=== PATIENT | male | born 1975 | race Caucasian/White ===

== ENCOUNTER 2018-12-15 18:23 | Emergency (ER) | payer MEDICAID ==
[2018-12-15] MEDS: METHYLPREDNISOLONE 125 MG INJ IM (20:26)
[2018-12-15] MEDS: ALBUTEROL 0.083% (NEB) 2.5 MG/3 ML AMP NEB (20:28)
[2018-12-15] MEDS: IPRATROPIUM (NEB) 0.5 MG/2.5 ML AMP NEB (20:28)
[2018-12-15] MEDS: ACETAMINOPHEN 500 MG TAB PO (20:34)
== END 2018-12-15 21:45 | disposition home or self-care (01) ==
LOC: FTE 21:45
DX: J06.9 Acute upper respiratory infection, unspecified (principal); B00.9 Herpesviral infection, unspecified
CPT/HCPCS: 71045; 87400; 94644; 96374; 99284-25